=== PATIENT | male | born 1995 | race Caucasian/White ===

== ENCOUNTER 2018-07-06 20:03 | Emergency (ER) | payer SELFPAY ==
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
[2018-07-06] MEDS ORDERED: IBUPROFEN 400 MG TAB ONE (22:03)
[2018-07-06] MEDS ORDERED: CYCLOBENZAPRINE 10 MG TAB ONE (22:03)
== END 2018-07-06 22:13 | disposition home or self-care (01) ==
LOC: ER 20:03
DX: S13.4XXA Sprain of ligaments of cervical spine, initial encounter (principal); V43.52XA Car driver injured in collision with other type car in traffic accident, initial encounter
CPT/HCPCS: 99284